=== PATIENT | male | born 1990 | race Caucasian/White ===

== ENCOUNTER → 2016-07-08 | Outpatient (CLI) | payer BC | END | disposition short-term general hospital (02) | LOC: CLSURG 07:48 | DX: K40.90 Unilateral inguinal hernia, without obstruction or gangrene, not specified as recurrent (principal) ==

== ENCOUNTER 2016-07-15 07:05 | Day surgery (SDC) | payer BC ==
[~2016-07-15] VITALS: Ht 185.4 cm; Wt 131.5 kg
== END 2016-07-15 12:50 | disposition short-term general hospital (02) ==
LOC: SURGOP 07:05
PROC: 0YU50JZ Supplement Right Inguinal Region with Synthetic Substitute, Open Approach (ICD-10-PCS; principal; 2016-07-15)
DX: K40.90 Unilateral inguinal hernia, without obstruction or gangrene, not specified as recurrent (principal); D17.6 Benign lipomatous neoplasm of spermatic cord; I10 Essential (primary) hypertension; Z90.49 Acquired absence of other specified parts of digestive tract; Z88.1 Allergy status to other antibiotic agents; E66.9 Obesity, unspecified
CPT/HCPCS: C1781; J0131; J0690; J1885; J2250; J3010

== ENCOUNTER → 2016-07-29 | Outpatient (CLI) | payer BC | END | disposition short-term general hospital (02) | LOC: CLSURG 08:27 | DX: Z48.815 Encounter for surgical aftercare following surgery on the digestive system (principal); Z96.89 Presence of other specified functional implants ==